=== PATIENT | male | born 1950 | race Caucasian/White ===

== ENCOUNTER 2025-03-12 07:40 | Outpatient (OUT) | payer MEDICARE, BC, SELFPAY ==
--- NOTE | 2025-03-12 07:56 | ECG_ITS ---
[facility] Test Date: 2025-03-12 Pat Name: EBER REYES Department: Room: - Gender: Male Site Leader: : 1950 Requested By: TINA NAIR Order Number: [id number] Reading MD: MIRNA RESENDEZ M.D. Measurements Intervals [place] Rate: 70 P: 81 AR: 169 QRS: 79 QRSD: 102 T: 83 QT: 377 QTc: 407 Interpretive Statements SINUS RHYTHM POSSIBLE RIGHT VENTRICULAR CONDUCTION DELAY [RSR (QR) IN V1/V2] Borderline ECG No previous ECG available for comparison Electronically Signed On 03-12-2025 17:12:51 EDT by MIRNA RESENDEZ M.D.
--- NOTE | 2025-03-12 07:56 | XR_ITS ---
The [address] [address] Patient Name: EBER REYES MRN: [id number] date: 1950 Sex: M [facility] Current Patient Location: [facility] Accession/Order Number: [id number] Exam Date: 03/12/2025 09:23 Report Date: 03/12/2025 09:25 At the request of: TINA NAIR MD Procedure: XR chest 2V PA AND LATERAL CHEST: CLINICAL HISTORY: Preoperative clearance. History of COPD COMPARISON: None There is hyperinflation. Minor basilar scarring or atelectasis is present. There is no focal parenchymal consolidation, effusion or pneumothorax. The cardiac, hilar and mediastinal silhouettes are within normal limits. There is no vascular congestion. Old right rib fractures are seen. Thoracolumbar dextroscoliotic curvature and mild degenerative changes are present at the spine. There is previous cervical decompression and fusion. XR/XR chest 2V IMPRESSION: OBSTRUCTIVE LUNG DISEASE WITH MINOR CHRONIC CHANGE. NO ACUTE CARDIOPULMONARY ABNORMALITY. Impression dictated by: Tonia Nino M.D.03/12/2025 9:25 AM Dictation Location: [place] [address] Electronically authenticated by: [id number] Y Date: 03/12/2025 09:25
[2025-03-12 09:02] LABS: Basophils Percent Auto 0.7 % (0.2-2.0); Eosinophils Absolute Auto 0.1 10^3/uL (0.0-0.7); Eosinophils Percent Auto 1.5 % (0.9-7.0); Hematocrit 43.5 % (42.0-54.0); Hemoglobin 14.6 g/dL (14.0-18.0); Immature Granulocytes Abs Auto 0.01 10^3/uL (0.00-0.03); Immature Granulocytes Pct Auto 0.2 % (0.0-0.5); Lymphocytes Absolute Auto 1.3 10^3/uL (1.2-3.8); Mean Corpuscular HGB Conc 33.6 g/dL (29.9-35.2); Mean Corpuscular Hemoglobin 32.9 pg (25.9-34.0); Mean Platelet Volume 10.3 fL (9.5-13.5); Monocytes Absolute Auto 0.7 10^3/uL (0.3-0.8); Monocytes Percent Auto 11.5 % (1.7-12.0); Neutrophils Absolute Auto 3.9 10^3/uL (1.4-6.5); Neutrophils Percent Auto 64.1 % (43.0-75.0); Platelet Count 186 10^3/uL (150-450); Red Blood Count 4.44 10^6/uL (4.70-6.10); Red Cell Distribution Width 14.9 % (11.0-15.0); White Blood Count 6.1 10^3/uL (4.0-11.0)
[2025-03-12 09:19] LABS: Anion Gap 7.9; BUN Creatinine Ratio 18.1; Calcium 9.4 mg/dL (8.5-10.1); Carbon Dioxide 33.9 mmol/L (21.0-32.0); Chloride 104 mmol/L (98-107); Estimated GFR (African America >60 (>=60 mL/min/1.73m^2); Estimated GFR (Non-African Ame >60 (>=60 mL/min/1.73m^2); Glucose 86 mg/dL (74-106); Potassium 4.8 mmol/L (3.5-5.1); Sodium 141 mmol/L (136-145)
[2025-03-12 09:23] LABS: INR 0.93; Partial Thromboplastin Time 26.9 sec (22.3-36.2); Prothrombin Time 9.9 sec (9.0-11.6)
== END 2025-03-12 07:41 | disposition home or self-care (01) ==
PROVIDERS: PCP Internal Medicine; Visit Provider Urology
DX: Z01.810 Encounter for preprocedural cardiovascular examination (principal); Z01.812 Encounter for preprocedural laboratory examination; C61 Malignant neoplasm of prostate; N42.89 Other specified disorders of prostate
CPT/HCPCS: 36415; 71046; 80048; 85025; 85610; 85730; 93005

== ENCOUNTER 2025-03-17 09:27 | Day surgery (SDC) | payer MEDICARE, BC, SELFPAY ==
[2025-03-12 08:59] VITALS: BP 132/69; PULSE 78; TEMP 36.5; O2SAT 96; BMI 17.9
[2025-03-17 09:34] VITALS: BP 136/74; PULSE 76; TEMP 36.1; O2SAT 98; BMI 17.9
[2025-03-17] MEDS: LACTATED RINGER'S SOLUTION 1,000 ML 50 ML IV (09:55)
[2025-03-17] MEDS: GENTAMICIN SULFATE 120 MG in 0.9 % SODIUM CHLORIDE 100 ML 206 MG IV (09:56)
[2025-03-17] MEDS: CEFAZOLIN SODIUM 1 GM/50 ML D5W PREMIX IV (10:33)
[2025-03-17] MEDS: LIDOCAINE 2% JELLY 20 ML UR (10:48)
[2025-03-17 11:11] VITALS: BP 101/56; PULSE 67; TEMP 36.2; O2SAT 98
--- NOTE | 2025-03-17 11:12 | P.URON_ITS ---
Urology Surgery Operative Note Operative Note Procedure Date: 03/17/25 Time Out Performed: yes Pre-op Diagnosis: Elevated PSA, prostate lesion on MRI, history of prostate cancer Post-op Diagnosis: same as pre-op Procedures performed: Prostate MRI fusion biopsies Anesthesia: MAC and local Primary Surgeon: Chapo Zaragoza Complications: None Estimated blood loss (mL): 5 Specimens: 6 biopsies from the area of interest. 12 biopsies from the mapped out technique Indications for Procedures: This gentleman has a history of prostate cancer with Iain 3+4 equal 7 in 1 core diagnosed about a year ago. He now presents for a confirmatory biopsy through active surveillance. His MRI revealed a PI-RADS 4 lesion. He has signed an informed consent for MRI prostate fusion biopsies after all risks were explained. Some of these include bleeding, infection, urosepsis and anesthesia to name a few. Detailed description of Procedure: The patient was kept on the [facility] bed and brought into the operating room. He was rotated in the left lateral decubitus position. Timeout was done by all parties in the room. MAC anesthesia was administered. His rectum was swabbed with Betadine soaked sponges. 2% lidocaine gel was passed per rectum. I then passed the ultrasound probe from the [employer] system per rectum. Segmentation was done so as to fuse the MRI images onto the live ultrasound. We identified the area of interest and lined it up and took 6 biopsies from this area. They were sent separately labeled area of interest. I then did mapped out biopsies in the standard fashion. 6 were obtained from the left side and 6 were obtained from the right side. These were all sent separately. The probe was then removed. He was then rotated into the supine position. He was then transferred to PACU in stable condition.
[2025-03-17 11:26] VITALS: BP 140/74; PULSE 68; O2SAT 93
[2025-03-17 11:40] VITALS: BP 137/91; PULSE 68; O2SAT 92
== END 2025-03-17 11:52 | disposition home or self-care (01) ==
LOC: SURGOUT 09:28
PROVIDERS: PCP Internal Medicine; Visit Provider Urology
PROC: (CPT 55700; principal; 2025-03-17 10:30)
DX: C61 Malignant neoplasm of prostate (principal); R97.20 Elevated prostate specific antigen [PSA]; J44.9 Chronic obstructive pulmonary disease, unspecified; I25.10 Atherosclerotic heart disease of native coronary artery without angina pectoris; F41.9 Anxiety disorder, unspecified; I10 Essential (primary) hypertension; F32.A Depression, unspecified; Z86.73 Personal history of transient ischemic attack (TIA), and cerebral infarction without residual deficits; F17.290 Nicotine dependence, other tobacco product, uncomplicated; Z79.82 Long term (current) use of aspirin; Z79.899 Other long term (current) drug therapy
CPT/HCPCS: 55700; 36415; J0690; J1100; J1580; J2371; J2405; J2704; J3010